=== PATIENT | female | born 1970 | race African-American/Black ===

== ENCOUNTER 2016-05-16 08:43 | Emergency (ER) ==
--- NOTE | 2016-05-16 09:51 | PROVIDER DOCUMENTATION ---
HPI-Rash/Wound/ReCheck - General Chief Complaint: Rash Stated Complaint: RASH Time Seen by Provider: 05/16/16 09:06 Allergies/Adverse Reactions: Allergies Allergy/AdvReac Type Severity Reaction Status Date / Time No Known Allergies Allergy Verified 05/16/16 09:17 Home Medications: Home Medication List Medication Instructions Recorded Confirmed Last Taken Type Hydroxyzine Pamoate [Vistaril] 25 mg PO Q6H PRN PRN #10 capsule 04/12/1605/16/16 01:00 Rx Hydroxyzine Pamoate [Vistaril] 25 mg PO 4XDAY PRN PRN #20 capsule 05/16/16 Unknown Rx - History of Present Illness-Dermatology Nature of Presenting Problem: pt report 2-3 month h/o rash to generalized body that comes and goes. Rash is pruritic. Has long h/o skin sensitivity and rash. Denies new detergent or soap. Has appt with PCP in a few days about her skin sensitivity. Location: reports: generalized Quality: reports: itchy. denies: burning, painful, stinging Severity: reports: mild Onset/Duration: reports: other (3 months ago) Timing: reports: intermittent Context/Associated Symptoms: reports: hives Identifiable cause?: No Modifying Factors: improves with: antihistamine Similar Symptoms Previously?: Yes Recently seen or treated by another doctor?: Yes Review of Systems - Adult - REVIEW OF SYSTEMS - ADULT Constitutional: denies: chills, fever Eyes: reports: no symptoms reported Ears, Nose, Mouth & Throat: reports: no symptoms reported. denies: mouth swelling, throat swelling Cardiovascular: reports: no symptoms reported Respiratory: reports: no symptoms reported Integumentary: reports: hives, rash All Other Systems: Reviewed and Negative Past History - Adult - PAST MEDICAL HISTORY-ADULT Review of Records: reports: Old Records Reviewed, Nursing Assessment Review, Medications Reviewed, Social history reviewed & non-contributory. - PRIOR SURGERIES/PROCEDURES Surgical/Procedure History: reports: none - SOCIAL HISTORY Smoking: non-smoker Living Situation: family Physical Exam-General - PHYSICAL EXAM-ADULT Initial Vital Signs Reviewed: Yes - CONSTITUTIONAL General Appearance: appears well, alert, no apparent distress - EYES Eyes: PERRL/EOMI, pink conjunctivae - HEAD, EARS, NOSE, MOUTH & THROAT HENMT: normocephalic/atraumatic, moist mucous membranes, normal ENT inspection - NECK Neck: non-tender, full range of motion, supple - RESPIRATORY Respiratory: chest non-tender, lungs clear, normal breath sounds - CARDIOVASCULAR Cardiovascular: regular rate, rhythm, no edema - GASTROINTESTINAL (ABDOMEN) Abdominal Exam: normal bowel sounds, non tender, soft - MUSCULOSKELETAL Back Exam: normal inspection, no CVA tenderness, no vertebral tenderness - SKIN Integumentary: rash (no rash appreciated at this time, there is excoriation to skin) - NEUROLOGIC Neurologic: grossly normal, no motor/sensory deficits - PSYCHIATRIC Psych/Mental Status: normal thought content, normal thought process Progress - PLAN OF CARE/RESULTS Progress/Plan/Lab Results: Vital Signs Temp Pulse Resp BP Pulse Ox 05/16/16 08:53 98.0 F 87 16 131/113 97 No Known Allergies Allergy (Verified 05/16/16 09:17) Hydroxyzine Pamoate [Vistaril] 25 mg PO Q6H PRN PRN #10 capsule 04/12/16 Departure - Departure Time of Disposition Order: 10:28 DIAGNOSIS: Rash and nonspecific skin eruption Disposition: HOME 01 Certified Medical Emergency: Emergent Condition: Good Additional Instructions: Shower in warm water (not hot) with mild soap (nothing with strong fragrance). Keep you appt with your doctor about the rash. ED Follow Up Instructions: You have been treated by a care provider in the Emergency Department. These instructions are being provided to you so you can have an understanding of how to care for yourself upon discharge. Upon discharge from the Emergency Department, you are responsible for making arrangements for follow-up care by a physician of your choice. Take all prescribed medications as directed. Return to the Emergency Department immediately for any new or worsening symptoms. You may call the Physician Referral phone number at [phone] to obtain a list of Physicians who are taking new patients. Prescriptions: Hydroxyzine Pamoate [Vistaril] 25 mg PO 4XDAY PRN PRN #20 capsule PRN Reason: Itching Attestation - Physician/ VERONICA Attestation Patient care was provided by Advanced Practice Provider:: Yes Advanced Practice Provider:: Moni Scott Advanced Practice Provider documentation review:: The Mid-level provider documentation, treatment plan and medical decision making was reviewed by the physician who agrees with all treatment and medical decision making by the MLP.
[2016-05-16 10:48] VITALS: BP 149/99
== END 2016-05-16 10:48 | disposition home or self-care (01) ==
LOC: ED 08:43
DX: R21 Rash and other nonspecific skin eruption (principal); L29.9 Pruritus, unspecified; L50.9 Urticaria, unspecified
CPT/HCPCS: 99282